=== PATIENT | female | born 1970 | race Caucasian/White ===

== ENCOUNTER 2021-01-09 10:34 | Outpatient (REF) | payer BC, SELFPAY ==
[2021-01-09 11:17] LABS: MANUAL DIFF FLAG NO
[2021-01-09 11:32] LABS: Basophils Absolute Auto 0.1 X10*3/uL (0.0-0.2); Basophils Percent Auto 0.9 % (0-2); Eosinophils Absolute Auto 0.3 X10*3/uL (0.0-0.4); Eosinophils Percent Auto 4.7 % (0-4); Hematocrit 46.1 % (37-47); Hemoglobin 15.1 g/dl (12.0-16.0); Imm Gran Abs Auto 0.01 X10*3/uL (0.00-0.03); Imm Gran Pct Auto 0.2 % (0.0-0.4); Lymphocytes Absolute Auto 2.2 X10*3/uL (1.2-4.9); Lymphocytes Percent Auto 37.6 % (20-40); Mean Corpuscular HGB Conc 32.8 g/dl (31.0-35.0); Mean Corpuscular Hemoglobin 29.8 pg (27.0-33.0); Mean Corpuscular Volume 91.1 fL (80-98); Mean Platelet Volume 10.1 fL (9.4-12.3); Monocytes Absolute Auto 0.4 X10*3/uL (0.1-1.2); Monocytes Percent Auto 7.6 % (2-11); Neutrophils Absolute Auto 2.9 X10*3/uL (2.0-8.3); Platelet Count 263 X10*3/uL (160-400); Red Blood Count 5.06 X10*6/uL (4.20-5.50); Red Cell Distribution Width 13.9 % (11.0-16.0); White Blood Count 5.8 X10*3/uL (4.8-10.8)
[2021-01-09 11:42] LABS: Alanine Aminotransferase 16 U/L (0-31); Albumin Level 4.2 g/dL (3.5-5.0); Alkaline Phosphatase 64 U/L (39-117); Anion Gap 13 (12-20); Aspartate Amino Transferase 14 U/L (5-31); Bilirubin Total 0.4 mg/dL (0.0-1.0); Blood Urea Nitrogen 15 mg/dL (9-16); Calcium 9.5 mg/dL (8.4-10.2); Carbon Dioxide 29 mmol/L (22-29); Chloride 104 mmol/L (96-108); Cholesterol 266 mg/dL; Estimated Glomerular Filt Rate > 60; Glucose Fasting 107 mg/dL (60-99); HDL Cholesterol 57 mg/dL; LDL Cholesterol Calculated 158 mg/dl; Potassium 4.7 mmol/L (3.3-5.1); Sodium 141 mmol/L (135-145); Total Protein 7.2 g/dL (6.5-8.0); Triglycerides 257 mg/dL
== END 2021-01-09 10:35 | disposition home or self-care (01) ==
LOC: HO.LAB 10:34
PROVIDERS: PCP Internal Medicine Medical Oncology; Visit Provider Internal Medicine Medical Oncology
DX: Z00.00 Encounter for general adult medical examination without abnormal findings (principal)
CPT/HCPCS: 36415; 80053; 80061; 82306; 85025

== ENCOUNTER 2023-06-30 14:20 | Outpatient (REF) | payer BC, SELFPAY ==
--- NOTE | 2023-06-30 14:32 | ECG_ITS ---
Test Reason : PREOP Blood Pressure : / mmHG Vent. Rate : 090 BPM Atrial Rate : 090 BPM P-R Int : 140 ms QRS Dur : 078 ms QT Int : 344 ms P-R-T Axes : 024 018 -07 degrees QTc Int : 420 ms Normal sinus rhythm Nonspecific T wave abnormality Inferior leads Abnormal ECG No previous ECGs available Referred By: Iraj Hunter Electronically Signed By:DANYEL TORO MD
[2023-06-30 14:33] LABS: MANUAL DIFF FLAG NO
[2023-06-30 15:22] LABS: Basophils Absolute Auto 0.1 X10*3/uL (0.0-0.2); Basophils Percent Auto 0.7 % (0-2); Eosinophils Absolute Auto 0.2 X10*3/uL (0.0-0.4); Eosinophils Percent Auto 2.4 % (0-4); Hematocrit 43.1 % (37.0-47.0); Hemoglobin 14.5 g/dl (12.0-16.0); Imm Gran Abs Auto 0.04 X10*3/uL (0.00-0.03); Imm Gran Pct Auto 0.4 % (0.0-0.4); Lymphocytes Absolute Auto 2.2 X10*3/uL (1.2-4.9); Lymphocytes Percent Auto 22.5 % (20-40); Mean Corpuscular HGB Conc 33.6 g/dl (31.0-35.0); Mean Corpuscular Hemoglobin 30.7 pg (27.0-33.0); Mean Corpuscular Volume 91.1 fL (80.0-98.0); Mean Platelet Volume 9.8 fL (9.4-12.3); Monocytes Absolute Auto 0.4 X10*3/uL (0.1-1.2); Monocytes Percent Auto 4.5 % (2-11); Neutrophils Absolute Auto 6.8 x10*3/uL (2.0-8.3); Neutrophils Percent Auto 69.5 % (45-73); Platelet Count 308 X10*3/uL (160-400); Red Blood Count 4.73 X10*6/uL (4.20-5.50); Red Cell Distribution Width 13.4 % (11.0-16.0); White Blood Count 9.8 X10*3/uL (4.8-10.8)
[2023-06-30 15:46] LABS: Anion Gap 15 (12-20); Blood Urea Nitrogen 9 mg/dL (9-16); Calcium 9.9 mg/dL (8.4-10.2); Carbon Dioxide 31 mmol/L (22-29); Chloride 102 mmol/L (96-108); Estimated Glomerular Filt Rate > 60; Glucose Random 140 mg/dL (60-115); Potassium 3.5 mmol/L (3.3-5.1); Sodium 144 mmol/L (135-145)
== END 2023-06-30 14:21 | disposition home or self-care (01) ==
LOC: HO.LAB 14:20
PROVIDERS: PCP Internal Medicine Medical Oncology; Visit Provider Internal Medicine Medical Oncology
DX: Z01.818 Encounter for other preprocedural examination (principal); R22.41 Localized swelling, mass and lump, right lower limb
CPT/HCPCS: 36415; 80048; 85025; 93005

== ENCOUNTER 2024-09-09 09:14 | Outpatient (REF) | payer BC, SELFPAY ==
[2024-09-09 09:26] LABS: MANUAL DIFF FLAG NO
--- OUTSIDE RECORDS SUMMARY | 2024-09-09 09:29 | XMS_ITS ---
Author Organization Iraj Hunter III, MD Address [address] [place] [address] Care Team Providers Care Service Technician Name Role Phone Iraj Hunter Primary Care Provider REASON FOR VISIT Rx request Medications Medication SIG (Take, Route, Frequency, Duration) Notes Start Date End Date Status Paxlovid (300/100) 20 x 150 MG & 10 x 100MG 3 tablets Orally Twice a day for 5 days gfr over 60 2-7-24 05/28/2024 Active Social History Sex Assigned At : Social History Observation Description Sex Assigned At Female Encounters Encounter Location Date Provider Diagnosis Iraj Hunter III, MD [address] [place] [address] [place] [address] 05/28/2024 Iraj Hunter Plan Of Treatment Medication Medication Name Sig Start Date Stop Date Notes Paxlovid (300/100) 20 x 150 MG & 10 x 100MG 3 tablets Orally Twice a day for 5 days 05/28/2024 gfr over 60 2-7-24 Next Appt Details Provider Name:Iraj Hunter, 08/12/2025 02:00:00 PM, [address] [place] [address] [place], [address], Progress Notes * Ealrine ESCOBEDO ADOB: [birth year] (54 yo F)Acc No.[id number]:05/28/2024 Patient:?Earline ESCOBEDO :1970???Age:54 Y???Sex:Female Address:[address] [place] [phone] * Refills? Start Paxlovid (300/100) Tablet Therapy Pack, 20 x 150 MG & 10 x 100MG, Orally, 30, 3 tablets, Twice a day, 5 days, Refills=0 * true * Date:? Generated for Sally schreiber/Matheus/Yaneliitting on:?09/09/2024 09:29 AM EST
--- OUTSIDE RECORDS SUMMARY | 2024-09-09 09:29 | XMS_ITS ---
Author Organization [facility] Address [address] [place] [phone] Care Team Providers Care Day Care Director Name Role Phone Iraj Hunter MD Primary Care Provider Unavailab Ericka Marrero [phone] Encounters Encounter Location Date Provider Diagnosis [address] [address] 08/12/2023 Ericka Patel Plan Of Treatment No Information Progress Notes * Earline JARQUIN ADOB: [birth year] (54 yo F)Acc No.[id number]:08/12/2023 Progress Notes Patient:?Earline JARQUIN Provider:?Ericka Patel DPM :1970???Age:53 Y???Sex:Female D ate:08/12/2023 Address:[address] [place], [place] [id number] Pcp:Iraj Hunter MD Subjective: * Chief Complaints: * ??? * Medical History:? Objective: * Vitals:? Assessment: Plan: * Treatment: * Images: * The named appointment provid er may or may not be the originator of this progress note, and it is not deemed complete until electronically signed by the appointment provider. Sign off status: Pending * Provider:?Ericka Patel DPM Date:?08/2023 Generated for Moei candie/Matheus/eTransmitting on:?09/09/2024 09:29 AM EST
--- OUTSIDE RECORDS SUMMARY | 2024-09-09 09:29 | XMS_ITS | Patient Health Record ---
Author Organization Iraj Hunter III, MD Address [address] [place] [address] Care Team Providers Care Wastewater Project Engineer Name Role Phone Iraj Hunter Primary Care Provider Allergies Allergen (clinical drug ingredient) Drug/Non Drug Allergy documented on EMR Reaction Allergy Type Onset Date Status codeine Codeine Sulfate Unknown Drug Allergy A ctive Results Component Value Reference Range Notes URINE DIP STICK Reviewed date:08/10/2024 02:12:39 PM Interpretation: Performing Lab: Notes/Report: SG 1.015 1.005 - 1.025 pH 6.5 5.0 - 9.0 JAYDON Negative Negative - NIT Negative Negative - PRO 15 Negative - Trace GLU Negative Negative - KET 5 Negative - UBG 0.2 0.1 - 1.8 NICOLE Negative 0.2 - 1.3 BLD Negative Negative - Reason For Referral Reason screening colonoscop y Diagnosis 1 Encounter for screen ing colonoscopy (Z12.11) Referral Organization Iraj Hunter III, MD Referring Provider First Name Iraj Referring Provider Last Name Elsa Referring Provider Speciality Internal M edicine Referred Organization [facility] Referred Provider [facility] Referred Address [address] [place] [address],[place], [id number], Referred Provider Specialty Gastroentero logy General Notes Simran Gray CMA 08/16 01:45:40 PM > ref/demo/progress note sent to Julio registered nurse first assistant, Simran Gray CMA 08/18/2024 04:26:18 PM >ref/demo/progress note faxed to gastro Referral Priority Routine Reason yearly pelvic and pa p smear Diagnosis 1 Annual physical exam (Z00.00) Referral Organization Iraj Hunter III, MD Referring Provider First Name Iraj Referring Provider Last Name Elsa Referring Provider Speciality Internal M edicine Referred Provider ZAIDA PANCHAL Referred Provider Specialty OB - Gynecol ogy General Notes Simran Gray CHICKEN FANCIER 08/10 03:07:23 PM > Called Dr Panchal office at [phone] made patient appt for 09/09/2024 2PM [address] [facility] [address] 2nd floor [place], [place] information mailed to pt Referral Priority Routine Referral Appointment Date 09/09/2024 Immunizations Vaccine Route Administration Date Status Comme nts COVID- 19 Vaccine Unknown 12/12/2020 Administered COVID- 19 Vaccine Unknown 01/09/2021 Administered Social History Tobacco Use: Social History Observation Description Date Details (start date - stop date) Current Smoker NA - NA Sex Assigned At : Social History Observation Description Sex Assigned At Female Tobacco Use/Smoking Question Answer Notes Patient is a current smoker How often do you smoke cigarettes? every day How many cigarettes a day do you smoke? 11-20 How soon after you wake up d o you smoke your first cigarette? 31-60 minutes Are you interested in quitting? Not ready to denny t Additional Findings: Tobacco User Heavy cigarett e smoker (20-39 cigs/day) Tobacco Control (Standard) Question Answer Notes Tobacco use: Current smoker How often do you smoke cigarettes? Every day How many cigarettes a day do you smoke? 11-20 How soon after you wake up d o you smoke your first cigarette? 6-30 minutes Are you interested in quitting? Thinking about q uitting Additional Findings: Tobacco user Modera te cigarette smoker (10-19 cigs/day) AUDIT-C (Standard) Question Answer Notes Did you have a drink contain ing alcohol in the past year? Yes How often did you have six o r more drinks on one occasion in the past year? 2 to 4 times a month (2 points) How many drinks did you have on a typical day when you were drinking in the past year? 3 or 4 drinks (1 point) How often did you have a dri nk containing alcohol in the past year? Never (0 point) Points 3 Interpretation Positive Problems Problem Type SNOMED Code ICD Code Onset Dates Problem Status W/U Status Risk Notes Problem 992399650 Overweight (E66.3) Active confirmed She is very slightly overweight. Her weight is not a health issue at this time. We reviewed her diet and nutrition at length. Problem 579244653 GERD (gastroesophagea l reflux disease) (K21.9) Active confirmed This is wel l controlled with medication. Problem 61292798 Irritable bowel syndrome (K58.9) Active confirmed No change h as occurred in the pattern of her discomfort. Problem 113694832 Mixed hyperlipidemia (E78.2) Active confirmed We will comprehensive blood work including a fasting lipid profile in the next few days. Problem Tobacco user (579222708) Nicotine dependence, unspecified, uncomplicated (F17.200) Active confirmed She continues to smoke a half a package of cigarettes per day. We have discussed the various smoking cessation programs in the area. We made a plan to reduce cigarettes by 1 per week. Problem 65436236 Tobacco dependence (F17.200) Active confirmed I strongly recommended smoking cessation and discussed with her several strategies for achieving us. She was made aware of the health risks of smoking. Problem Osteoporosis (14561063) Osteoporosis (M81.0) Active confirmed She will have a bone density test. She was continued on current therapy. Problem 08114721 Vitamin D deficiency (E55.9) Active confirmed She was continued on her current supplements. A vitamin D level as been ordered. Problem 381369956 Prediabetes (R73.03) Active confirmed A hemoglobin A1c microalbumin and fasting glucose is pending. Problem Goiter (8896653) Enlarged thyroid (E01.0) Active confirmed A third remains unchanged and seems to be stable at this time. No change in her medication was made. Vital Signs Heart Rate 81 /min 08/10/2024 Temperature 98.0 degrees Fahrenheit 08/10/2024 Blood pressure diastolic 80 mm Hg 08/10/2024 Height 61 in 08/10/2024 Blood pressure systolic 135 mm Hg 08/10/2024 Weight 137 lbs 08/10/2024 BMI 25.88 kg/m2 08/10/2024 Encounters Encounter Location Date Provider Diagnosis Iraj Hunter III, MD [address] [place] [address] [address] [place], [place] [address] 08/10/2024 Iraj Hunter Other screening mammogram Z12.31 ; Osteoporosis M81.0 ; Mixed hyperlipidemia E78.2 ; Enlarged thyroid E01.0 ; Hyperglycemia R73.9 ; Prediabetes R73.03 ; Vitamin D deficiency E55.9 ; GERD (gastroesophageal reflux disease) K21.9 and Nicotine dependence, unspecified, uncomplicated F17.200 Iraj Hunter III, MD [address] [place] [address] [place] [address] 04/16/2024 Iraj Hunter III, MD [address] [place] [address] [place] [address] 12/01/2023 Iraj Hunter III, MD [address] [place] [address] [place] [address] 05/28/2024 Iraj Hunter III, MD [address] [place] [address] [place] [address] 12/01/2023 Iraj Hunter Assessments Encounter Date Diagnosis (ICD Code) Assessment Notes Treat ment Notes Treatment Clinical Notes 08/10/2024 Other screening mammogram (ICD-10 - Z12.31) We have ordered her annual screening mammogram. 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 08/10/2024 Osteoporosis (ICD-10 - M81.0) She will have a bone density test. She was continued on current therapy. 08/10/2024 Mixed hyperlipidemia (ICD-10 - E78.2) We will comprehensive blood work including a fasting lipid profile in the next few days. 08/10/2024 Enlarged thyroid (ICD-10 - E01.0) A third remains unchanged and seems to be stable at this time. No change in her medication was made. 08/10/2024 Hyperglycemia (ICD-1 0 - R73.9) A fasting lipid profile is pending. 08/10/2024 Prediabetes (ICD-10 - R73.03) A hemoglobin A1c microalbumin and fasting glucose is pending. 08/10/2024 Vitamin D deficiency (ICD-10 - E55.9) She was continued on her current supplements. A vitamin D level as been ordered. 08/10/2024 GERD (gastroesophageal reflux disease) (ICD-10 - K21.9) This is well controlled with medication. 08/10/2024 Nicotine dependence, unspecified, uncomplicated (ICD-10 - F17.200) She continues to smoke a half a package of cigarettes per day. We have discussed the various smoking cessation programs in the area. We made a plan to reduce cigarettes by 1 per week. Plan Of Treatment Pending Test Test Name Order Date PROFILE, FASTING (COMPREHENSIVE METABOLI C) 06/30/2023 PROFILE, FASTING (COMPREHENSIVE METABOLI C) 08/10/2024 PROFILE, FASTING (COMPREHENSIVE METABOLI C) 02/05/2022 PROFILE, FASTING (COMPREHENSIVE METABOLI C) 08/06/2023 HEMOGLOBIN A1C (GLYCOHEMOGLOBIN) 023 LIPID PANEL 06/30/2023 LIPID PANEL 02/05/2022 FREE T4 (FT4) 08/10/2024 FREE T4 (FT4) 06/30/2023 TSH (THYROID STIMULATING HORMONE) 2023 TSH (THYROID STIMULATING HORMONE) 2022 TSH (THYROID STIMULATING HORMONE) 2022 CBC w DIFF 08/06/2023 CBC w DIFF 06/30/2023 CBC w DIFF 02/05/2022 CBC w DIFF 08/10/2024 SED RATE (ESR) 02/05/2022 URINE CULTURE 02/05/2022 BONE DENSITY DEXA 08/10/2024 Lipid Panel 08/10/2024 Lipid Panel 08/06/2023 Vitamin D 25-OH Total 08/10/2024 ECG 12 lead EKG 06/30/2023 MM tomosynthesis diagnostic BI Hemoglobin A1c 08/10/2024 Next Appt Details Provider Name:Iraj Hunter, 08/12/2025 02:00:00 PM, [address] [place] [address] [address], [place], [address], Insurance Providers Payer Name Payer Address Payer Phone Subscriber Number Group Number Insured Name Patient Relationship to Insured Coverage Start Date Coverage End Date [facility] [address] [place], [place] [id number] Earline Jarquin Self - patient is the insured Medical (General) History Medical History History ICD Code GERD Irritable bowle syndrome tobacco dependence Prediabetes Surgical History Surgery Date(Month/Year) None Hospitalization History Reason Date(Month/Year) None
--- OUTSIDE RECORDS SUMMARY | 2024-09-09 09:29 | XMS_ITS ---
Author Organization Iraj Hunter III, MD Address [address] [place] [address] Care Team Providers Care Investment Underwriter Name Role Phone Iraj Hunter Primary Care Provider [phone] Allergies Allergen (clinical drug ingredient) Drug/Non Drug [...] Provider Speciality Internal M edicine Referred Organization [facility] Referred Provider [facility] er, Gastroenterology Referred Address [address] [place] [address],[place], [place],[id number], Referred Provider Specialty Gastroentero logy General Notes Simran Gray CMA 08/16 01:45:40 PM > ref/demo/progress note sent to Julio broom builder, Simran Gray CMA 08/18/2024 04:26:18 PM >ref/demo/progress note faxed to [facility] gastro Referral Priority Routine Reason yearly pelvic and pa p smear Diagnosis 1 Annual physical exam (Z00.00) Referral Organization Iraj Hunter III, MD Referring Provider First Name Iraj Referring Provider Last Name Elsa Referring Provider Speciality Internal M edicine Referred Provider ZAIDA PANCHAL Referred Provider Specialty OB - Gynecol ogy General Notes Simran Gray HEARING IMPAIRED TEACHER 08/10 03:07:23 PM > Called Dr Panchal office at [phone] made patient appt for 09/09/2024 2PM [address] [facility] [facility] [address] 2nd floor [place], [place] information mailed to pt Referral Priority Routine Referral Appointment Date 09/09/2024 REASON FOR VISIT Annual Exam, Colonoscopy Due, Mammogram Due Social History Tobacco Use: Social History Observation [...] Problem Status W/U Status Risk Notes Problem Tobacco user (669143781) Nicotine dependence, unspecified, uncomplicated (F17.200) Active confirmed She continues to smoke a half a package of cigarettes per day. We have discussed the various smoking cessation programs in the area. We made a plan to reduce cigarettes by 1 per week. Vital Signs Temperature 98.0 degrees Fahrenheit 08/10/20 24 Blood pressure systolic 135 mm Hg 08/10/20 24 Blood pressure diastolic 80 mm Hg 024 Heart Rate 81 /min 08/10/2024 Height 61 in 08/10/2024 Weight 137 lbs 08/10/2024 BMI 25.88 kg/m2 08/10/2024 Encounters Encounter Location Date Provider Diagnosis Iraj Hunter III, MD [address] [place] [address] [place] [address] 08/10/2024 Iraj Hunter Other screening mammogram Z12.31 ; Osteoporosis M81.0 ; Mixed hyperlipidemia E78.2 ; Enlarged thyroid E01.0 ; Hyperglycemia R73.9 ; Prediabetes R73.03 ; Vitamin D deficiency E55.9 ; GERD (gastroesophageal reflux disease) K21.9 and Nicotine dependence, unspecified, uncomplicated F17.200 Assessments Encounter Date Diagnosis (ICD Code) Assessment Notes Treat ment Notes Treatment Clinical Notes 08/10/2024 Other screening mammogram (ICD-10 - Z12.31) We have ordered her annual screening mammogram. We have ordered her annual BEEF BONER examination and colonoscopy. 08/10/2024 Osteoporosis (ICD-10 - [...] Order Date PROFILE, FASTING (COMPREHENSIVE METABOLI C) 08/10/2024 FREE T4 (FT4) 08/10/2024 TSH (THYROID STIMULATING HORMONE) 2023 CBC w DIFF 08/10/2024 BONE DENSITY DEXA 08/10/2024 Lipid Panel 08/10/2024 Vitamin D 25-OH Total 08/10/2024 MM tomosynthesis diagnostic BI Hemoglobin A1c 08/10/2024 Referrals Referral Date Details 08/10/2024 08/10/2024, karl morales colonoscopy, Gastroenterology [facility], [address] [place] [address], [place], [place], [phone], 08/10/2024 08/10/2024, yearly p elvic and pap smear, ZAIDA PANCHAL Next Appt Details Follow Up: as scheduled, Breonna son: annual exam Provider Name:Iraj Hunter, 08/12/2025 02:00:00 PM, [address] [place] [address] [address] ESTELLE Javier, [place], [address], Progress Notes * Earline ESCOBEDO ADOB: [birth year] (54 yo F)Acc No.[id number]:08/10/2024 Progress Notes Patient:?Earline ESCOBEDO Provider:?Iraj Hunter MD :1970???Age:54 Y???Sex:Female D ate:08/10/2024 Address:[address] [place] [id number] Subjective: * Chief Complaints: * ???Annual ExamColonoscopy Du eMammogram Due * HPI: ???Depression Screening:?PHQ-9?Little interest or pleasure in doing things?Not at all ?Feeling down, depressed, or hopeless?More than half the days ?Trouble falling or staying asleep, or sleeping too much?More than half the days ?Feeling tired or having little energy?Several days ?Poor appetite or overeating?More than half the days ?Feeling bad about yourself or that you are a failure, or have let yourself or your family down?Not at all ?Trouble concentrating on things, such as reading the newspaper or watching television?Several days ?Moving or speaking so slowly that other people could have noticed; or the opposite, being so fidgety or restless that you have been moving around a lot more than usual?Not at all ?Thoughts that you would be better off or of hurting yourself in some way?Not at all ?Total Score?8 ?Interpretation?Mild Depression ???COVID-19 Screening:?Questions?Have you had any new onset fever, chills, cough, congestion, sore throat, shortness of breath, muscle aches??No ?Have you been exposed to the virus within the last 10 days??No ?Have you travelled internationally in the last 10 days??No ?Have you been exposed to COVID-19 in the past??Yes ???SDOH Questions:?SDOH Questions?In the past year have you been worried about losing your housing??No ?In the past year have you or any family members you live with been unable to get any of the following when it was really needed? Check all that apply:?None ???:? The patient, a 54-year-old female, has been experiencing difficulty sleeping due to stress and overthinking. She has also gained weight recently, which she attributes to the holiday season. She has not reported any specific symptoms or discomfort, but she has expressed concern about her , Leland, who has a growing mass on his kidney. The patient's blood pressure was measured at 120, but it was not specified whether this was systolic or diastolic. The patient has not noticed any lumps or abnormalities in her breasts. She has not visited a hotel yardperson in a long time and has been postmenopausal since she was 47. She has not had a bone density test before. * ROS:?General/Constitutional:?pain?only normal aches and pains.?Chills?denies.?Fatigue?admits.?Fever?denies.?ENT:?Decreased hearing?denies.?Respiratory:?Cough?denies.?Cardiovascular:?Chest pain with exertion?denies.?Dyspnea on exertion?denies.?Shortness of breath?denies.?Gastrointestinal:?Constipation?occasional.?Decreased appetite?denies.?Diarrhea?denies.?Heartburn?denies.?Nausea?denies.?Rectal bleeding?denies.?Vomiting?denies.?Hematology:?bruising?denies.?petechiae?denies.?Swollen glands?none have been noted.?Genitourinary:?Frequent urination?denies.?Musculoskeletal:?Muscle aches?denies.?Painful joints?denies.?Sciatica?denies.?Weakness?denies.?Skin:?Itching?denies.?Rash?denies.?Skin lesion(s)?denies.?Neurologic:?Difficulty speaking?denies.?Dizziness?denies.?Headache?denies.?Low back pain?denies.?Psychiatric:?Depressed mood?denies.? * Medical History:? * Surgical History:?None * Hospitalization/Major Diagno stic Procedure:?None * Family History:?Father: bubba mason?Mother: alive.?Children: alive.?Daughter(s): alive.?Siblings: alive.?Spouse: alive.?3 brother(s) , 1 sister(s) - healthy. 2 daughter(s) - healthy. .? Joselyn is 18 and Carmen is 14. Her children are healthy and well. There is no family history of breast cancer. * Social History:?Tobacco Use:?Tobacco Use/Smoking?Patient is a?current smoker ?How often do you smoke cigarettes??every day ?How many cigarettes a day do you smoke??11-20 ?How soon after you wake up do you smoke your first cigarette??31-60 minutes ?Are you interested in quitting??Not ready to quit ?Additional Findings: Tobacco User?Heavy cigarette smoker (20-39 cigs/day) ?Tobacco Control (Standard)?Tobacco use:?Current smoker ?How often do you smoke cigarettes??Every day ?How many cigarettes a day do you smoke??11-20 ?How soon after you wake up do you smoke your first cigarette??6-30 minutes ?Are you interested in quitting??Thinking about quitting ?Additional Findings: Tobacco user?Moderate cigarette smoker (10-19 cigs/day) ???Drugs/Alcohol:?Drugs?Have you used drugs other than those for medical reasons in the past 12 months??No ???Drug/Alcohol:?AUDIT-C (Standard)?Did you have a drink containing alcohol in the past year??Yes ?How often did you have six or more drinks on one occasion in the past year??2 to 4 times a month (2 points) ?How many drinks did you have on a typical day when you were drinking in the past year??3 or 4 drinks (1 point) ?How often did you have a drink containing alcohol in the past year??Never (0 point) ?Points?3 ?Interpretation?Positive ???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 She has no toxic exposures except for cigarettes. She smokes about one package per day. * Medications:?DiscontinuedPax lovid (300/100) 20 x 150 MG & 10 x 100MG Tablet Therapy Pack 3 tablets Orally Twice a day , Notes to Pharmacist: gfr over 60 2-8-08Morgssuhqp List reviewed and reconciled with the patientDiscontinued Paxlovid (300/100) 20 x 150 MG & 10 x 100MG Tablet Therapy Pack 3 tablets Orally Twice a day , Notes to Pharmacist: gfr over 60 3-6-54Psmknsqjup List reviewed and reconciled with the patient * Allergies:?Codeine Sulfateno [Allergies Verified] Objective: * Vitals:?Ht: 61, Wt: 137, BMI :25.88, BP: 135/80, HR: 81, Temp: 98.0, Wt-k.14. * ???Past Orders: Lab:URINE DIP STICK * Collection Date 08/10/2024 08/06/2023 02/05/2022 Collection Time 11:39 AM Order Date 08/10/2024 08/06/2023 02/05/2022 SG 1.015 (Ref Range: 1.005 - 1.025) 1.020 (Ref Range: 1.005 - 1.025) 1.020 pH 6.5 (Ref Range: 5.0 - 9.0) 6.0 (Ref Range: 5.0 - 9.0) 5.0 JAYDON Negative (Ref Range: Negative -) Negative (Ref Range: Negative -) neg NIT Negative (Ref Range: Negative -) Negative (Ref Range: Negative -) neg PRO 15 (Ref Range: Negative - Trace) 15 (Ref Range: Negative - Trace) 0.15 GLU Negative (Ref Range: Negative -) Negative (Ref Range: Negative -) neg KET 5 (Ref Range: Negative -) Negative (Ref Range: Negative -) neg UBG 0.2 (Ref Range: 0.1 - 1.8) 0.2 (Ref Range: 0.1 - 1.8) 0.2 NICOLE Negative (Ref Range: 0.2 - 1.3) Negative (Ref Range: 0.2 - 1.3) neg BLD Negative (Ref Range: Negative -) Negative (Ref Range: Negative -) neg Menstrating NR no no * Examination: ???General Examination: ?GENERAL APPEARANCE:?pleasant, well nourished, well developed, in no acute distress, calm and relaxed, overweight, woman.?HEAD:?atraumatic, normocephalic.?EYES:?eomi, perrla, anicteric, conjugate.?EARS:?normal.?NOSE:?septum intact.?ORAL CAVITY:?normal, unremarkable.?NECK/THYROID:?no jugular venous distention, no carotid bruit, thyroid normal and not palpable.?LYMPH NODES:?no enlarged lymph nodes,spleen normal.?SKIN:?no suspicious lesions, anicteric.?HEART:?no clicks, gallops, murmurs, or rubs, regular rhythm, S1, S2 normal, no s3, or vascular bruits.?LUNGS:?, diminished breath sounds throughout, no wheezes, rales, rhonchi, good air movement.?BREASTS:??no masses palpable bilaterally.?ABDOMEN:?bowel sounds normal, no ascites, no organomegaly, no mass, overweight.?RECTAL EXAM:?not examined.?MUSCULOSKELETAL:?extremities unremarkable, no clubbing, cyanosis or edema.?PERIPHERAL PULSES:?normal.?NEUROLOGIC:?alert and oriented, cranial nerves 2-12 grossly intact, deep tendon reflexes 2+ symmetrical, motor strength normal upper and lower extremities, sensory exam intact.?PSYCH:?alert, oriented.? : ???undefined. ??? Assessment: * Assessment: 1.?Osteoporosis - M81.0 (Ally castro)???Notes :She will have a bone density test.? She was continued on current therapy.???2.?Other screening mammogram - Z12.31???Notes :We have ordered her annual screening mammogram.? We have ordered her annual BEEF BONER examination and colonoscopy.???3.?Mixed hyperlipidemia - E78.2???Notes :We will comprehensive blood work including a fasting lipid profile in the next few days.???4.?Enlarged thyroid - E01.0???Notes :A third remains unchanged and seems to be stable at this time.? No change in her medication was made.???5.?Hyperglycemia - R73.9???Notes :A fasting lipid profile is pending.???6.?Prediabetes - R73.03???Notes :A hemoglobin A1c microalbumin and fasting glucose is pending.???7.?Vitamin D deficiency - E55.9???Notes :She was continued on her current supplements.? A vitamin D level as been ordered.???8.?GERD (gastroesophageal reflux disease) - K21.9???Notes :This is well controlled with medication.???9.?Nicotine dependence, unspecified, uncomplicated - F17.200???Notes :She continues to smoke a half a package of cigarettes per day.? We have discussed the various smoking cessation programs in the area.? We made a plan to reduce cigarettes by 1 per week.??? Plan: * Treatment: 2.?Other screening mammogram ?Imaging: MM tomosynthesis diagnostic BI 3.?Mixed hyperlipidemia?LAB: PROFILE, FASTING (COMPREHENSIVE METABOLIC) ?LAB: FREE T4 (FT4) ?LAB: TSH (THYROID STIMULATING HORMONE) ?LAB: CBC w DIFF ?LAB: Lipid Panel ?LAB: Vitamin D 25-OH Total ?LAB: Hemoglobin A1c 4.?Enlarged thyroid?LAB: PROFILE, FASTING (COMPREHENSIVE METABOLIC) ?LAB: FREE T4 (FT4) ?LAB: TSH (THYROID STIMULATING HORMONE) ?LAB: CBC w DIFF ?LAB: Lipid Panel ?LAB: Vitamin D 25-OH Total ?LAB: Hemoglobin A1c 5.?Hyperglycemia?LAB: PROFILE, FASTING (COMPREHENSIVE METABOLIC) ?LAB: FREE T4 (FT4) ?LAB: TSH (THYROID STIMULATING HORMONE) ?LAB: CBC w DIFF ?LAB: Lipid Panel ?LAB: Vitamin D 25-OH Total ?LAB: Hemoglobin A1c 6.?Prediabetes?LAB: PROFILE, FASTING (COMPREHENSIVE METABOLIC) ?LAB: FREE T4 (FT4) ?LAB: TSH (THYROID STIMULATING HORMONE) ?LAB: CBC w DIFF ?LAB: Lipid Panel ?LAB: Vitamin D 25-OH Total ?LAB: Hemoglobin A1c 7.?Vitamin D deficiency?LAB: PROFILE, FASTING (COMPREHENSIVE METABOLIC) ?LAB: FREE T4 (FT4) ?LAB: TSH (THYROID STIMULATING HORMONE) ?LAB: CBC w DIFF ?LAB: Lipid Panel ?LAB: Vitamin D 25-OH Total ?LAB: Hemoglobin A1c 8.?Others? Referral To:Gastroenterology [facility]??Gastroenterology ?Reason:screening colonoscopy ? Referral To:ZAIDA PANCHAL??OB - Gynecology ?Reason:yearly pelvic and pap smear * Labs:? * ?Lab: URINE DIP STICK (C ollection Date & Time - 08/10/2024) ? Value Reference Range ?SG 1.015 1.005 - 1.025 * ?pH 6.5 5.0 - 9.0 * ?JAYDON Negative Negative - * ?NIT Negative Negative - * ?PRO 15 Negative - Trac e * ?GLU Negative Negative - * ?KET 5 Negative - * ?UBG 0.2 0.1 - 1.8 * ?NICOLE Negative 0.2 - 1.3 * ?BLD Negative Negative - * Procedure Codes:?25876 URINE -NO MICRO * Preventive Medicine:? ??Counseling:?Care goal follow-up plan:?Counseling for abnormal BMI given?Yes ?Above Normal BMI Follow-up?Dietary management education, guidance, and counseling, Dietary needs education, Exercise promotion: strength training, Exercise promotion: stretching, Feeding regime, Giving encouragement to exercise, Lifestyle education regarding diet, Nutrition / feeding management, Nutrition therapy, Prescribed activity/exercise education, Prescribed diet education, Prescribed dietary intake, Special diet education, Weight monitoring , Intervention, Order not done: Medical or Other reason not done * Follow Up:?as scheduled (Owasso son: annual exam) * Images: * Sign off status: Completed true * Provider:?Iraj Hunter MD Date:?08/01 Generated for Sally schreiber/Matheus/Shan on:?09/09/2024 09:29 AM EST History and Physical Notes * HPI (History of Present Illness) Category Sub-Category Detail Notes Depression Screening PHQ-9 Little inte rest or pleasure in doing things: Not at all Feeling down, depressed, or hopeless: Mo re than half the days Trouble falling or staying a sleep, or sleeping too much: More than half the days Feeling tired or having little energy: S everal days Poor appetite or overeating: More than h kelly the days Feeling bad about yourself o r that you are a failure, or have let yourself or your family down: Not at all Trouble concentrating on thi ngs, such as reading the newspaper or watching television: Several days Moving or speaking so slowly that other people could have noticed; or the opposite, being so fidgety or restless that you have been moving around a lot more than usual: Not at all Thoughts that you would be b carli off or of hurting yourself in some way: Not at all Total Score: 8 Interpretation: Mild Depression COVID-19 Screening Questions Have you had any new onset fever, chills, cough, congestion, sore throat, shortness of breath, muscle aches?: No Have you been exposed to the virus withi n the last 10 days?: No Have you travelled internationally in [facility] last 10 days?: No Have you been exposed to COVID-19 in the past?: Yes SDOH Questions SDOH Questions In the past year have you been worried about losing your housing?: No In the past year have you or any family members you live with been unable to get any of the following when it was really needed? Check all that apply:: None Examination Category Sub-Category Detail Notes General Examination GENERAL APPEARANCE: pleasant , well nourished, well developed, in no acute distress, calm and relaxed, overweight, woman HEAD: atraumatic, normocep halic EYES: eomi, perrla, anicte tanvi, conjugate EARS: normal NOSE: septum intact NECK/THYROID: no jugular venous di stention, no carotid bruit, thyroid normal and not palpable HEART: no clicks, gallops, murmurs, or rubs, regular rhythm, S1, S2 normal, no s3, or vascular bruits LUNGS: , diminished breath sounds throughout, no wheezes, rales, rhonchi, good air movement ABDOMEN: bowel sounds normal, no ascites, no organomegaly, no mass, overweight NEUROLOGIC: alert and oriented, cranial nerves 2-12 grossly intact, deep tendon reflexes 2+ symmetrical, motor strength normal upper and lower extremities, sensory exam intact SKIN: no suspicious lesion s, anicteric PERIPHERAL PULSES: normal BREASTS: no masses palpable b ilaterally MUSCULOSKELETAL: extremities unremark able, no clubbing, cyanosis or edema LYMPH NODES: no enlarged lymph no luis alberto,spleen normal RECTAL EXAM: not examined PSYCH: alert, oriented ORAL CAVITY: normal, unremarkable Consultation Request Notes Referral Date Referring Provider Referred Provider Not es 08/10/2024 Iraj Hunter [facility], Gastroenterology screening colonoscopy 08/10/2024 Iraj Hunter THOMAS yearly pelvic and pap smear
--- OUTSIDE RECORDS SUMMARY | 2024-09-09 09:29 | XMS_ITS ---
Author Organization Iraj Hunter III, MD Address [address] [place] [address] [place] [address] Care Team Providers Care Gaming Host Name Role Phone Iraj Hunter Primary Care Provider REASON FOR VISIT Colorectal Cancer Screening Social History Sex Assigned At : Social History Observation Description Sex Assigned At Female Encounters Encounter Location Date Provider Diagnosis Iraj Hunter III, MD [address] [place] [address] [place] [address] 04/16/2024 Iraj Hunter Plan Of Treatment Next Appt Details Provider Name:Iraj Hunter, 08/12/2025 02:00:00 PM, [address] [place] [address] [address] [place], [place], [address], Progress Notes * Earline ESCOBEDO ADOB: [birth year] (54 yo F)Acc No.[id number]:04/16/2024 Patient:?Earline ESCOBEDO :1970???Age:54 Y???Sex:Female Address:[address] [place] [phone] * * Date:?
--- OUTSIDE RECORDS SUMMARY | 2024-09-09 09:30 | XMS_ITS ---
Author Organization [facility] Address [address] [place] [address] Care Team Providers Care Plant Technical Specialist Name Role Phone Iraj Hunter MD Primary Care Provider Unavailab Ericka Marrero Unavailable [phone] Encounters Encounter Location Date Provider Diagnosis [address] [address] 07/15/2023 Ericka Patel Plan Of Treatment No Information Progress Notes * Earline JARQUIN ADOB: [birth year] (54 yo F)Acc No.[id number]:07/15/2023 Progress Notes Patient:?Radha JARQUINberly Jennifer Provider:?Ericka Patel DPM :1970???Age:53 Y???Sex:Female D ate:07/15/2023 Address:[address] [place], [place] [id number] Pcp:Iraj Hunter MD Subjective: * Chief Complaints: * ??? * Medical History:? Objective: * Vitals:? Assessment: Plan: * Treatment: * Images: * The named appointment provid er may or may not be the originator of this progress note, and it is not deemed complete until electronically signed by the appointment provider. Sign off status: Pending * Provider:?Ericka Patel DPM Date:? Generated for Moei candie/Matheus/eTransmitting on:?09/09/2024 09:30 AM EST
--- OUTSIDE RECORDS SUMMARY | 2024-09-09 09:30 | XMS_ITS | Patient Health Record ---
Author [facility] Address [address] [place] [address] Care Team Providers Care Rn Pool Name Role Phone Iraj Hunter MD Primary Care Provider UnavailEricka Hinson Unavailable [phone] Allergies Allergen (clinical drug ingredient) Drug/Non Drug Allergy documented on EMR Reaction Allergy Type Onset Date Status Codeine Phosphate swelling Drug Allergy Active Reason For Referral No Information Medications Medication SIG (Take, Route, Fr equency, Duration) Notes Start Date End Date Status Ibuprofen 800 MG 1 tablet Orally Thre e times a day for 14 days 07/01/2023 Active Social History Tobacco Use: Social History Observation Description Date Details (start date - stop date) Current Smoker NA - NA Tobacco Use/Smoking Question Answer Notes Are you a: current smoker How many cigarettes a day do you smoke? 21-30 Alcohol Screen Question Answer Notes Did you have a drink contain ing alcohol in the past year? Yes How often did you have a dri nk containing alcohol in the past year? 2 to 4 times a month (2 points) Points 2 Interpretation Negative Tobacco use other than smoking: Question Answer Notes Are you an other tobacco user? No Plan Of Treatment Pending Test Test Name Order Date X ray : Ankle, right 3V 12/31/2022 Insurance Providers Payer Name Payer Address Payer Phone Subscriber Number Group Number Insured Name Patient Relationship to Insured Coverage Start Date Coverage End Date [employer] [address] [place] [address] [id number] Stoney Jarquin Spouse - patient is the spouse of the insured Medical (General) History Surgical History Surgery Date(Month/Year)
--- OUTSIDE RECORDS SUMMARY | 2024-09-09 09:30 | XMS_ITS ---
Author Organization [facility] Address [address] [place] [phone] Care Team Providers Care Methods Specialist Engineer Name Role Phone Iraj Hunter MD Primary Care Provider Unavailab Ericka Marrero Unavailable [phone] Encounters Encounter Location Date Provider Diagnosis [address] [address] 07/22/2023 Ericka Patel Plan Of Treatment No Information Progress Notes * Earline JARQUIN ADOB: [birth year] (54 yo F)Acc No.[id number]:07/22/2023 Progress Notes Patient:?Earline JARQUIN Provider:?Ericka Patel DPM :1970???Age:53 Y???Sex:Female D ate:07/22/2023 Address:[address] [place], [place] [id number] Pcp:Iraj Hunter MD Subjective: * Chief Complaints: [...] DPM Date:? Generated for Moei candie/Matheus/eTransmitting on:?09/09/2024 09:29 AM EST
[2024-09-09 09:38] LABS: Basophils Absolute Auto 0.1 X10*3/uL (0.0-0.2); Basophils Percent Auto 0.9 % (0-2); Eosinophils Absolute Auto 0.3 X10*3/uL (0.0-0.4); Eosinophils Percent Auto 3.3 % (0-4); Hematocrit 46.1 % (37.0-47.0); Hemoglobin 15.1 g/dl (12.0-16.0); Imm Gran Abs Auto 0.03 X10*3/uL (0.00-0.03); Imm Gran Pct Auto 0.4 % (0.0-0.4); Lymphocytes Absolute Auto 2.8 X10*3/uL (1.2-4.9); Lymphocytes Percent Auto 36.2 % (20-40); Mean Corpuscular HGB Conc 32.8 g/dl (31.0-35.0); Mean Corpuscular Hemoglobin 30.3 pg (27.0-33.0); Mean Corpuscular Volume 92.4 fL (80.0-98.0); Mean Platelet Volume 9.5 fL (9.4-12.3); Monocytes Absolute Auto 0.6 X10*3/uL (0.1-1.2); Monocytes Percent Auto 7.3 % (2-11); Neutrophils Absolute Auto 4.1 x10*3/uL (2.0-8.3); Neutrophils Percent Auto 51.9 % (45-73); Platelet Count 310 X10*3/uL (160-400); Red Blood Count 4.99 X10*6/uL (4.20-5.50); Red Cell Distribution Width 13.8 % (11.0-16.0); White Blood Count 7.9 X10*3/uL (4.8-10.8)
[2024-09-09 09:44] LABS: Estimated Average Glucose 114 mg/dL; Hemoglobin A1C 149.4703 umol/L; Hemoglobin A1c % 5.6 % (<6.0)
[2024-09-09 10:43] LABS: Alanine Aminotransferase 20 U/L (0-31); Albumin Level 4.1 g/dL (3.5-5.0); Anion Gap 11 (12-20); Aspartate Amino Transferase 19 U/L (5-31); Bilirubin Total 0.3 mg/dL (0.0-1.0); Blood Urea Nitrogen 20 mg/dL (9-16); Calcium 9.2 mg/dL (8.4-10.2); Carbon Dioxide 29 mmol/L (22-29); Chloride 107 mmol/L (96-108); Cholesterol 245 mg/dL (<200); Estimated Glomerular Filt Rate > 60; Glucose Fasting 116 mg/dL (60-99); HDL Cholesterol 58 mg/dL (>40); LDL Cholesterol Calculated 133 mg/dL (<100); Potassium 3.9 mmol/L (3.3-5.1); Sodium 143 mmol/L (135-145); Total Protein 7.4 g/dL (6.5-8.0); Triglycerides 270 mg/dL (<150)
[2024-09-09 11:07] LABS: Free T4 (Free Thyroxine) 0.89 ng/dL (0.71-1.85); Vitamin D 25-OH Total 16.7 ng/mL (>30)
[2024-09-09 12:25] LABS: Alkaline Phosphatase 73 U/L (39-117)
== END 2024-09-09 09:15 | disposition home or self-care (01) ==
LOC: HO.LAB 09:14
PROVIDERS: PCP Internal Medicine Medical Oncology; Visit Provider Internal Medicine Medical Oncology
DX: M81.0 Age-related osteoporosis without current pathological fracture (principal); E78.2 Mixed hyperlipidemia; E01.0 Iodine-deficiency related diffuse (endemic) goiter; R73.9 Hyperglycemia, unspecified; R73.03 Prediabetes; E55.9 Vitamin D deficiency, unspecified
CPT/HCPCS: 36415; 80053; 80061; 82306; 83036; 84439; 84443; 85025